=== PATIENT | female | born 1995 | race Two or more races ===

== ENCOUNTER 2018-03-18 00:45 | Emergency (ER) | payer SELFPAY ==
[2018-03-18 01:31] LABS: ABS Basophils 0.1 10^3/ul (0-0.2); ABS Eosinophils 0 10^3/ul (0-0.6); ABS Lymphocytes 2.3 10^3/ul (1.0-4.8); ABS Monocytes 0.6 10^3/ul (0-0.8); ABS Neutrophils 5.2 10^3/ul (1.5-7.7); ABS Nucleated RBC 0 10^3/ul; Eosinophil % 0.2 % (0-6); Hematocrit 36 % (35-47); Lymphocyte % 27.8 % (25-47); Mean Corpuscular HGB Conc 34 g/dl (31-36); Mean Corpuscular Hemoglobin 32 pg (27-31); Mean Corpuscular Volume 97 fL (80-97); Mean Platelet Volume 8.1 um3 (7.4-10.4); Nucleated Red Blood Cells % 0; Platelet Count 228 10^3/ul (150-450); Red Blood Count 3.71 10^6/ul (4.0-5.4); Red Cell Distribution Width 14 % (10.5-15); White Blood Count 8.2 10^3/ul (3.5-10.8)
[2018-03-18 01:46] LABS: EGFR Non-African American 92.8 (>60)
--- NOTE | 2018-03-18 06:02 | ED ---
Magen Schaefer Jennifer, scribed for Itzel Flores MD on 03/18/18 at 0051 . Substance Abuse/Use - HPI Summary HPI Summary: The patient is a 22 year old female who was brought in for alcohol intoxication. The patient states she was drinking vodka and was in an [employer]. She denies drug use and any history. - History Of Current Complaint Stated Complaint: ETOH Hx Obtained From: Patient Onset/Duration of Drug/ETOH Abuse: Hours Ingestion History: Type/Name Of Drug - EtOH Overdose Characteristics: Oral Timing Of Abuse: Binge Use Severity Initially: Mild Severity Currently: Mild Aggravating Factor(s): Nothing Alleviating Factor(s): Nothing - Allergies/Home Medications Allergies/Adverse Reactions: Allergies Allergy/AdvReac Type Severity Reaction Status Date / Time No Known Allergies Allergy Verified 03/18/18 01:03 Home Medications: Home Medications NK [No Home Medications Reported] 03/18/18 [History Confirmed 03/18/18] PMH/Surg Hx/FS Hx/Imm Hx Endocrine/Hematology History: Denies: Hx Diabetes Cardiovascular History: Denies: Hx Hypertension - Family History Known Family History: Negative: Renal Disease - Social History Occupation: Student Alcohol Use: Occasionally Hx Substance Use: No Substance Use Type: Reports: None Review of Systems Negative: Fever Neurological: Other - alcohol intoxication All Other Systems Reviewed And Are Negative: Yes Physical Exam - Summary Physical Exam Summary: GENERAL: ~Patient is a well developed and nourished F who is lying comfortable in the stretcher. ~Patient is not in any acute respiratory distress. HEAD AND FACE: Normocephalic EYES: PERRLA, EOMI x 2. EARS: Hearing grossly intact. MOUTH: Oropharynx within normal limits. NECK: Supple, trachea is midline, no adenopathy, no JVD, no carotid bruit. CHEST: Symmetric, no tenderness at palpation LUNGS: Clear to auscultation bilaterally. No wheezing or crackles. CVS: Regular rate and rhythm, S1 and S2 present, no murmurs or gallops appreciated. ABDOMEN: Soft, non-tender. Bowel sounds are normal. No abdominal abnormal pulsations. EXTREMITIES: Full ROM in all major joints, no edema, no cyanosis or clubbing. NEURO: Alert and oriented x 3. No acute neurological deficits. Speech is normal and follows commands. SKIN: Dry and warm Triage Information Reviewed: Yes Vital Signs Reviewed: Yes Diagnostics - Laboratory Result Diagrams: 03/18/18 00:58 03/18/18 00:58 Lab Statement: Any lab studies that have been ordered have been reviewed, and results considered in the medical decision making process. Course/Dx - Course Course Of Treatment: The patient is a 22 y/o F who was brought in for alcohol intoxication. MICKI level was 294. The pt was given a liter of IV fluid and is resting comfortably. Pt will be signed out to Dr. Freire pending sobriety and re-evaluation. - Diagnoses Provider Diagnoses: Alcohol intoxication Discharge - Sign-Out/Discharge Documenting (check all that apply): Sign-Out Patient Signing out patient TO: Mark Freire - pending sobriety and re-evaluation - Discharge Plan The documentation as recorded by the Magen gil Jennifer accurately reflects the service I personally performed and the decisions made by , Itzel Flores MD.
--- NOTE | 2018-03-18 08:22 | ED ---
Course/Dx - Course Course Of Treatment: WALKING IN ED. ALERT. FRIEND HERE TO PICK HER UP. - Diagnoses Provider Diagnoses: Alcohol intoxication Discharge - Sign-Out/Discharge Documenting (check all that apply): Discharge/Admit/Transfer - Discharge Plan Condition: Stable Disposition: HOME Patient Education Materials: Alcohol Intoxication (ED) Referrals: [facility] [Provider Group] Additional Instructions: FOLLOW UP WITH [facility]. RETURN TO THE EMERGENCY DEPARTMENT FOR ANY WORSENING OF YOUR CONDITION OR QUESTIONS OR CONCERNS. - Billing Disposition and Condition Condition: STABLE Disposition: HOME
[2018-03-18 08:26] VITALS: BP 122/86
== END 2018-03-18 08:25 | disposition home or self-care (01) ==
LOC: ED 00:45
DX: F10.129 Alcohol abuse with intoxication, unspecified (principal)
CPT/HCPCS: 36415; 80053; 80320; 84702; 85025; 99283; G0480